=== PATIENT | female | born 1960 | race Native Hawaiian/Other Pacific Islander ===

== ENCOUNTER 2016-11-19 09:26 | Outpatient (CLI) | payer OTHER | END 2016-11-19 10:26 | disposition home or self-care (01) | LOC: RAD 09:26 | DX: J44.9 Chronic obstructive pulmonary disease, unspecified (principal); R06.02 Shortness of breath ==

== ENCOUNTER 2018-03-30 08:37 | Outpatient (CLI) | payer OTHER | END 2018-03-30 19:13 | disposition home or self-care (01) | LOC: LABW 08:37 | DX: R05 Cough (principal) | CPT/HCPCS: 87070; 87077; 87185; 87186; 87205 ==

== ENCOUNTER 2018-05-04 11:11 | Outpatient (CLI) | payer OTHER | END 2018-05-04 22:17 | disposition home or self-care (01) | LOC: MRI 11:11 | DX: M47.892 Other spondylosis, cervical region (principal) ==

== ENCOUNTER 2018-05-06 14:53 | Outpatient (CLI) | payer OTHER | END 2018-05-06 21:31 | disposition home or self-care (01) | LOC: US 14:53 | DX: M79.661 Pain in right lower leg (principal); R22.41 Localized swelling, mass and lump, right lower limb ==

== ENCOUNTER 2018-09-24 10:38 | Outpatient (CLI) | payer OTHER | END 2018-09-24 19:49 | disposition home or self-care (01) | LOC: US 10:38 | DX: M79.604 Pain in right leg (principal); R22.41 Localized swelling, mass and lump, right lower limb ==

== ENCOUNTER 2019-03-16 07:45 | Day surgery (SDC) | payer OTHER | END 2019-03-16 09:15 | disposition home or self-care (01) | LOC: OR 07:45 | PROC: 3E0R33Z Introduction of Anti-inflammatory into Spinal Canal, Percutaneous Approach (ICD-10-PCS; principal; 2019-03-16) | PROC: B01BYZZ Fluoroscopy of Spinal Cord using Other Contrast (ICD-10-PCS; 2019-03-16) | DX: M51.17 Intervertebral disc disorders with radiculopathy, lumbosacral region (principal) | CPT/HCPCS: J1020; J2001 ==

== ENCOUNTER 2019-05-18 07:58 | Day surgery (SDC) | payer OTHER ==
[~2019-05-18] VITALS: Ht 175.3 cm; Wt 80.7 kg
== END 2019-05-18 09:55 | disposition home or self-care (01) ==
LOC: OR 07:58
PROC: 3E0R33Z Introduction of Anti-inflammatory into Spinal Canal, Percutaneous Approach (ICD-10-PCS; principal; 2019-05-18)
PROC: B01BYZZ Fluoroscopy of Spinal Cord using Other Contrast (ICD-10-PCS; 2019-05-18)
DX: M51.17 Intervertebral disc disorders with radiculopathy, lumbosacral region (principal)
CPT/HCPCS: J1020

== ENCOUNTER 2019-07-01 08:09 | Outpatient (CLI) | payer OTHER | END 2019-07-01 23:59 | disposition home or self-care (01) | LOC: MRI 08:09 | DX: M54.17 Radiculopathy, lumbosacral region (principal); M54.12 Radiculopathy, cervical region ==

== ENCOUNTER 2019-08-05 10:23 | Outpatient (CLI) | payer OTHER | END 2019-08-05 19:21 | disposition home or self-care (01) | LOC: MAMMO 10:23 | DX: Z12.31 Encounter for screening mammogram for malignant neoplasm of breast (principal); N64.59 Other signs and symptoms in breast ==

== ENCOUNTER 2019-08-23 07:53 | Day surgery (SDC) | payer OTHER ==
[~2019-08-23] VITALS: Ht 30.5 cm; Wt 0.5 kg
== END 2019-08-23 10:00 | disposition home or self-care (01) ==
LOC: OR 07:53
PROC: 3E0R33Z Introduction of Anti-inflammatory into Spinal Canal, Percutaneous Approach (ICD-10-PCS; principal; 2019-08-23)
PROC: B01BYZZ Fluoroscopy of Spinal Cord using Other Contrast (ICD-10-PCS; 2019-08-23)
DX: M50.123 Cervical disc disorder at C6-C7 level with radiculopathy (principal)
CPT/HCPCS: J1020

== ENCOUNTER 2019-09-20 07:36 | Day surgery (SDC) | payer OTHER ==
[~2019-09-20] VITALS: Ht 30.5 cm; Wt 0.5 kg
== END 2019-09-20 09:01 | disposition home or self-care (01) ==
LOC: OR 07:36
PROC: 3E0R33Z Introduction of Anti-inflammatory into Spinal Canal, Percutaneous Approach (ICD-10-PCS; principal; 2019-09-20)
PROC: B01BYZZ Fluoroscopy of Spinal Cord using Other Contrast (ICD-10-PCS; 2019-09-20)
DX: M50.123 Cervical disc disorder at C6-C7 level with radiculopathy (principal)
CPT/HCPCS: J1020

== ENCOUNTER 2020-01-09 08:55 | Inpatient (IN) | payer OTHER ==
[~2020-01-09] VITALS: Ht 175.3 cm; Wt 70.9 kg
[2020-01-09 08:58] VITALS: BP 134/64; TEMP 98.9
[2020-01-09 09:25] LABS: PLATELET COUNT 267 K/uL (152-353)
[2020-01-09 09:35] LABS: POTASSIUM 4.1 mmol/L (3.6-5.2); SODIUM 137 mmol/L (136-145)
[2020-01-09 10:00] VITALS: BP 132/68
[2020-01-09 11:00] VITALS: BP 136/74
[2020-01-09 12:38] VITALS: BP 135/76
[2020-01-09 14:32] VITALS: BP 108/54; TEMP 98.8; Ht 175.3 cm; Wt 70.9 kg
[2020-01-09] MEDS ORDERED: SIMV40TA57 PO (19:26)
[2020-01-09] MEDS ORDERED: OMEPRAZOLE DR40 MG PO (19:27)
[2020-01-09] MEDS ORDERED: PEPCID40 MG PO (19:28)
[2020-01-09] MEDS ORDERED: MONT10TA PO (19:29)
[2020-01-09] MEDS ORDERED: MOBIC15 MG PO (19:29)
[2020-01-09] MEDS ORDERED: CITALOPRAM20 MG PO (19:29)
[2020-01-09] MEDS ORDERED: FLUTMIS6 INH (19:30)
[2020-01-09] MEDS ORDERED: NEURONTIN800 MG PO (19:31)
[2020-01-09] MEDS ORDERED: CALAN SR120 MG PO (19:32)
[2020-01-09] MEDS ORDERED: TRAZODONE HYDR150 MG PO (19:32)
[2020-01-09] MEDS ORDERED: ALPR0.5T24 PO (19:33)
[2020-01-09] MEDS ORDERED: TIZANIDINE HYDRO4 MG PO (19:33)
[2020-01-09] MEDS ORDERED: ONDA4TAB3 PO (19:34)
[2020-01-09] MEDS ORDERED: PERCOCET1 TA3 PO (19:34)
[2020-01-09] MEDS ORDERED: METOPROLOL25 M1 PO (19:35)
[2020-01-09] MEDS ORDERED: ROPINIROLE1 MG PO (19:38)
[2020-01-09] MEDS ORDERED: ROPINIROLE2 M1 PO (19:38)
[2020-01-09 20:00] VITALS: BP 129/57; TEMP 98.6
[2020-01-10 00:17] VITALS: BP 123/72; TEMP 98.3
[2020-01-10 04:02] VITALS: BP 151/76; TEMP 98.8
[2020-01-10 05:44] LABS: PLATELET COUNT 208 K/uL (152-353)
[2020-01-10 06:18] LABS: POTASSIUM 3.4 mmol/L (3.6-5.2)
[2020-01-10 08:00] VITALS: BP 121/66; TEMP 97.7
[2020-01-11] MEDS ORDERED: ALBU0.042 INH (15:57)
[2020-01-11] MEDS ORDERED: AMITRIPTYLIN75 MG PO (15:58)
== END 2020-01-10 08:35 | disposition left against medical advice (07) | DRG 392 ==
LOC: ED 08:55 → MED/SURG 11:20
PROVIDERS: Internal Medicine; ADMIT Emergency Medicine
DX: K52.89 Other specified noninfective gastroenteritis and colitis (principal); G89.4 Chronic pain syndrome; F32.89 Other specified depressive episodes; J44.9 Chronic obstructive pulmonary disease, unspecified; K21.9 Gastro-esophageal reflux disease without esophagitis; I10 Essential (primary) hypertension; M79.7 Fibromyalgia
CPT/HCPCS: 36415; 80048; 80053; 81000; 82150; 83036; 83690; 84484; 85027; 94760; 96360; 96365; 96375; 99284; J1650; J2405; J2543; J2765; J3490

== ENCOUNTER 2020-01-24 12:16 | Outpatient (CLI) | payer OTHER ==
[~2020-01-24 12:16] MED LIST: ALBU0.042 INH; ALPR0.5T24 PO; AMITRIPTYLIN75 MG PO; CALAN SR120 MG PO; CITALOPRAM20 MG PO; CLON0.5T36 PO; DIVALPROEX500 MG PO; ESCI10TA PO; FLUTMIS6 INH; HYDR5TAB9 PO; METOPROLOL25 M1 PO; METR250T19 PO; MOBIC15 MG PO; MONT10TA PO; NEURONTIN800 MG PO; OMEPRAZOLE DR40 MG PO; ONDA4TAB3 PO; PEPCID40 MG PO; PERCOCET1 TA3 PO; QUET25TA2 PO; ROPINIROLE1 MG PO; ROPINIROLE2 M1 PO; SIMV40TA57 PO; TIZANIDINE HYDRO4 MG PO; TRAZODONE HYDR150 MG PO
== END 2020-01-24 19:20 | disposition home or self-care (01) ==
LOC: MRI 12:16
DX: I63.9 Cerebral infarction, unspecified (principal); M54.6 Pain in thoracic spine

== ENCOUNTER 2020-10-31 08:13 | Outpatient (CLI) | payer OTHER | END 2020-10-31 22:09 | disposition home or self-care (01) | LOC: MAMMO 08:13 | PROVIDERS: ATTEND Internal Medicine | DX: Z12.31 Encounter for screening mammogram for malignant neoplasm of breast (principal) ==

== ENCOUNTER 2021-07-05 11:01 | Outpatient (CLI) | payer OTHER | END 2021-07-05 19:06 | disposition home or self-care (01) | LOC: MRI 11:01 | PROVIDERS: ATTEND Anesthesiology Pain Medicine | DX: M54.5 Low back pain (principal); M54.16 Radiculopathy, lumbar region ==

== ENCOUNTER 2021-08-17 14:28 | Emergency (ER) | payer OTHER ==
[~2021-08-17] VITALS: Ht 175.3 cm; Wt 49.9 kg
[2021-08-17 14:41] VITALS: TEMP 99.2
[2021-08-17 15:34] LABS: POTASSIUM 3.4 mmol/L (3.6-5.2)
[2021-08-17 15:36] LABS: PLATELET COUNT 428 K/uL (152-353)
[2021-08-17 16:12] VITALS: BP 154/71
== END 2021-08-17 16:12 | disposition home or self-care (01) ==
LOC: ED 14:28
PROVIDERS: Emergency Medicine
DX: R41.0 Disorientation, unspecified (principal); E87.6 Hypokalemia
CPT/HCPCS: 80048; 80307; 81000; 85027; 99283

== ENCOUNTER 2023-02-03 13:38 | Outpatient (CLI) | payer OTHER | END 2023-02-03 19:17 | disposition home or self-care (01) | LOC: RAD 13:38 | PROVIDERS: ATTEND Internal Medicine | DX: M25.512 Pain in left shoulder (principal) ==